=== PATIENT | female | born 1990 | race African-American/Black ===

== ENCOUNTER 2019-05-06 17:01 | Emergency (ER) | payer BC, SELFPAY ==
[2019-05-06 17:10] VITALS: BP 134/92; PULSE 110; RESP 18; TEMP 36.9; O2SAT 99
--- NOTE | 2019-05-06 17:16 | ED.GENADULT ---
HPI - General Adult General Chief complaint: Seizure Stated complaint: seizure Time Seen by Provider: 05/06/19 17:02 Source: patient, family and EMS Mode of arrival: ambulatory Limitations: no limitations History of Present Illness HPI narrative: Patient is a 28-year-old female who presents to emergency department for evaluation of seizure-like activity that occurred just prior to arrival patient was in the car when she seized was postictal afterwards no injury or trauma was sustained patient presents per EMS noting some mild discomfort of the head neck and upper back patient notes history of seizures has been compliant with her medication is currently on Lamictal. Patient is ANO x4 on arrival. Patient denies any recent illness or other complaints Related Data Allergies Allergy/AdvReac Type Severity Reaction Status Date / Time No Known Allergies Allergy Verified 05/06/19 17:09 Review of Systems Review of Systems: All systems reviewed & are unremarkable except as noted in HPI and below PMFSH Past Medical History Medical History (Updated 05/06/19 @ 19:33 by Won Esquivel PA-C) Seizures Social History Social History (Updated 05/06/19 @ 17:17 by Won Esquivel PA-C) Smoking status: Never smoker Gender identity (if verbalized by the patient): Female Exam Narrative: Exam Narrative: GENERAL: Well-appearing, well-nourished, and in no acute distress. HEAD: Normocephalic, atraumatic. EYES: PERRLA and EOMI. ENT: Nares clear, no rhinorrhea or epistaxis. Mucous membranes moist. Oropharynx without tonsillar hypertrophy exudate or other lesions. NECK: Supple. No adenopathy or masses. CHEST: Clear to auscultation. No respiratory distress. No wheezes rales or rhonchi HEART: Regular rate and rhythm. No murmur heard. Normal peripheral pulses. ABDOMEN: Soft, nontender, nondistended EXTREMITIES: Normal range of motion. No edema. SKIN: Warm, dry, no rash. NEURO: No focal deficits. Alert and oriented x3. Cranial nerves II through XII grossly intact. Normal speech PSYCH: Normal mood and affect. Course Course Emergency Course: Patient in the room in no distress aware of case findings treatment plan and diagnosis agreeing to follow-up as directed or to return if symptoms worsen or concerns Consultations Consultation #1: Discussed with neurology who recommends giving 100 mg Lamictal at this time and increasing dose to 150 twice daily Vital Signs Vital signs: Vital Signs Temperature 98.5 F 05/06/19 17:10 Pulse Rate 110 H 05/06/19 17:10 Respiratory Rate 18 05/06/19 17:10 Blood Pressure 134/92 H 05/06/19 17:10 Pulse Oximetry 99 05/06/19 17:10 Temperature 98.5 F 05/06/19 17:10 Pulse Rate 106 H 05/06/19 17:37 Respiratory Rate 18 05/06/19 17:10 Blood Pressure 134/92 H 05/06/19 17:10 Pulse Oximetry 99 05/06/19 17:10 Medical Decision Making MDM Narrative Medical decision making narrative: Patient in the room in no distress aware of case findings treatment plan and diagnosis agreeing to follow-up with neurology aware of recommendations and discussion with neurology was given a extra dose of her Lamictal in the emergency department will have the dose increased to 150 twice a day as recommended by neurology Vital Signs Vital Signs: Vital Signs Temperature 98.5 F 05/06/19 17:10 Pulse Rate 110 H 05/06/19 17:10 Respiratory Rate 18 05/06/19 17:10 Blood Pressure 134/92 H 05/06/19 17:10 Pulse Oximetry 99 05/06/19 17:10 Temperature 98.5 F 05/06/19 17:10 Pulse Rate 106 H 05/06/19 17:37 Respiratory Rate 18 05/06/19 17:10 Blood Pressure 134/92 H 05/06/19 17:10 Pulse Oximetry 99 05/06/19 17:10 Lab Data Result diagrams: 05/06/19 17:32 05/06/19 17:55 Labs: Lab Results 05/06/19 05/06/19 05/06/19 Range/Units 17:32 17:32 17:32 WBC 9.4 (4.5-10.0) K/mm3 RBC 6.02 H (4.2-5.4) M/mm3 Hgb 13.3 (12.0-15.0) g/dL Hct 42.
[2019-05-06] MEDS: SODIUM CHLORIDE 0.9% IV 1,000 ML 999 ML IV CONT (17:32)
[2019-05-06 17:37] VITALS: PULSE 106
[2019-05-06 17:46] LABS: Basophils Absolute Auto 0.1 K/mm3 (0.0-0.1); Basophils Percent Auto 0.5 % (0.2-1.2); Eosinophils Absolute Auto 0.1 K/mm3 (0-0.3); Eosinophils Percent Auto 1.5 % (0-4.4); Hematocrit 42.5 % (37.0-47.0); Hemoglobin 13.3 g/dL (12.0-15.0); Immature Granulocyte Absolute 0.03 K/mm3 (0.00-0.031); Immature Granulocyte Percent A 0.3 % (0-0.5); Lymphocytes Absolute Auto 2.14 K/mm3 (0.9-3.2); Lymphocytes Percent Auto 22.9 % (18.3-44.2); Mean Corpuscular HGB Conc 31.3 g/dl (32-36); Mean Corpuscular Hemoglobin 22.1 pg (26-34); Mean Corpuscular Volume 70.6 fl (80-100); Monocytes Absolute Auto 0.5 K/mm3 (0.1-0.6); Monocytes Percent Auto 5.7 % (2.6-8.5); Neutrophils Absolute Auto 6.5 K/mm3 (1.3-6.7); Neutrophils Percent Auto 69.1 % (45.5-73.1); Nucleated Red Blood Cells Perc 0.2 % (0.0-0.2); Platelet Count Result 493 k/mm3 (150-375); Red Blood Count 6.02 M/mm3 (4.2-5.4); Red Cell Distribution Width 17.9 % (11.5-14.5); White Blood Count 9.4 K/mm3 (4.5-10.0)
[2019-05-06 17:52] LABS: Add Urine Microscopic? YES; Appearance Urine Clear (Clear); Bacteria Urine Trace /hpf; Bilirubin Urine Negative (Negative); Blood Urine Negative (Negative); Color Urine Yellow (Yellow); Glucose Urine UA Negative (Negative); Ketones Urine Negative (Negative); Leukocyte Esterase Ur Negative LEU/UL (Negative); Mucus Urine Rare /lpf; Nitrate Urine Negative (Negative); Protein Urine 2+ mg/dL (Negative); RBC Urine 0-2 /hpf (0-2); Squamous Epithelial Cell Urine Moderate /hpf (Few); Urobilinogen Urine Negative mg/dL (<2.0); WBC Urine 0-3 /hpf
[2019-05-06 17:59] LABS: Amphetamine Screen Urine Negative (Negative); Barbiturate Screen Urine Negative (Negative); Benzodiazepines Screen Urine Negative (Negative); Cannabinoid Screen Urine Negative (Negative); Cocaine Screen Urine Negative (Negative); Methadone Screen Urine Negative (Negative); Opiate Screen Urine Negative (Negative); Phencyclidine Screen Urine Negative (Negative)
[2019-05-06 18:25] LABS: Alanine Aminotransferase 21 U/L (4-35); Albumin Level 5.1 g/dL (3.5-5.1); Alkaline Phosphatase 77 U/L (38-126); Aspartate Amino Transferase 28 U/L (14-36); Bilirubin,Total 0.5 mg/dL (0.2-1.3); Blood Urea Nitrogen 8 mg/dL (7-17); Calcium 9.8 mg/dL (8.4-10.2); Carbon Dioxide 23 mmol/L (22-30); Chloride 103 mmol/L (98-107); Estimated Glomerular Filt Rate > 60; Glucose 93 mg/dL (65-105); Potassium 3.7 mmol/L (3.4-5.0); Sodium 141 mmol/L (137-145)
[2019-05-06] MEDS: lamoTRIgine 100 MG TABLET PO (20:03)
[2019-05-06 20:07] VITALS: BP 157/99; PULSE 99; RESP 18; O2SAT 98
--- NOTE | 2019-05-11 14:12 | PC.NURSE ---
LATE ENTRY This note is being entered to document information to the patient's record. The following information was omitted on [05/06/2019], by [DOV James]. NS 1000mL infused with a stop time of 1835. Ofirmev 100mL infused with a stop time of 1750.
== END 2019-05-06 20:08 | disposition home or self-care (01) ==
PROVIDERS: Emergency Medicine Emergency Medical Services; Emergency Provider Emergency Medicine
DX: G40.909 Epilepsy, unspecified, not intractable, without status epilepticus (principal)
CPT/HCPCS: 36415; 80053; 80307; 81001; 85025; 96361; 96365; 99284; A9270; J0131; J7030